=== PATIENT | male | born 1950 | race Caucasian/White ===

== ENCOUNTER → 2017-03-25 | Outpatient (CLI) | payer OTHER, MEDICARE ==
[~2017-03-25] MED LIST: MTF500TCR PO; SMV20T PO
--- NOTE | 2017-03-25 15:11 | Diagnostic Imaging Report ---
PROCEDURE: CT lumbar spine without contrast. TECHNIQUE: Multiple contiguous axial images were obtained through the lumbar spine without the use of intravenous contrast. Sagittal and coronal reformations were then performed. INDICATION: Chronic back pain, recent falls. COMPARISON STUDY: CT of the lumbar spine from 06/01/2012. FINDINGS: The exam demonstrates diffuse degenerative changes. No fracture or subluxation is present. T12-L1 level demonstrates calcification of the disc with minimal indentation of the thecal sac. This appears stable. The L1-L2 level demonstrates some anterior osteophytes. No stenosis is present. The L2-L3 level demonstrates minimal facet arthropathy. No stenosis is present. The L3-L4 level demonstrates stable ledl-kg-lubgyjbg facet arthropathy. No stenosis is present. It demonstrates previous left hemilaminectomy. Disc space narrowing is present with moderate facet arthropathy. Diffuse osteophytic ridging is present. Lqpbwqfv-mm-derqgo central stenosis is present. There is moderate narrowing of the neuroforamina. The L5-S1 level demonstrates near-complete loss of the disc space. Dqss-uz-xjtophwk facet arthropathy is present. There is osteophytic ridging. Moderate foraminal stenosis appears stable. Degenerative changes are present in the visualized portions of the sacroiliac joints. IMPRESSION: Diffuse spondylosis is present of the lumbar spine which appears stable. Significant stenosis is present at L4-L5 and L5-S1. Degenerative changes are also present in the sacroiliac joints. Dictated by: Dictated on workstation # [id number]
--- NOTE | 2017-03-25 15:29 | Diagnostic Imaging Report ---
PROCEDURE: CT cervical spine without contrast. TECHNIQUE: Multiple contiguous axial images were obtained through the cervical spine without the use of intravenous contrast. Sagittal and coronal reformations were then performed. INDICATION: Recent fall, chronic neck pain. COMPARISON STUDIES: None. FINDINGS: Examination demonstrates multilevel spondylosis. No fracture is present. The soft tissues of the neck appear normal. The right mastoid air cells are opacified with few mastoid air cells on the left being opacified. The lung apices are clear. C4-C5 level demonstrates mild osteophytic ridging and minimal facet arthropathy. There is jhhy-zb-otslfbmd narrowing of the left neuroforamina. C5-C6 level demonstrates disc space narrowing with moderate osteophytic ridging. Wtmm-gc-yeodcpuz bilateral foraminal stenosis is present. There is mild central stenosis. C6-C7 level demonstrates disc space narrowing with osteophytic ridging and some facet arthropathy. There is severe narrowing of the left neuroforamina. Kpho-dc-chhrtsdf central stenosis is present. Mild narrowing of the right foramina is present. IMPRESSION: Degenerative changes are present in the cervical spine with irmakeox-dt-ukfkpo stenosis at C6-C7. Fluid is present within the mastoid air cells. Dictated by: Dictated on workstation # [id number]
== END ==
LOC: RAD 14:14
PROVIDERS: ATTEND Family Medicine
DX: M54.9 Dorsalgia, unspecified (principal); M48.02 Spinal stenosis, cervical region; M48.06 Spinal stenosis, lumbar region
CPT/HCPCS: 72125; 72131